=== PATIENT | male | born 1990 | race Caucasian/White ===

== ENCOUNTER 2017-04-23 12:55 | Emergency (ER) | payer BC ==
[2017-04-23 13:49] LABS: Urine Bilirubin 1 mg/dl (NEGATIVE); Urine Blood 25 /ul (NEGATIVE); Urine Ketone Negative (NEGATIVE); Urine Nitrite Negative (NEGATIVE); Urine Protein 30 mg/dL (NEGATIVE); Urine Specific Gravity 1.015 SP.GR. (1.005-1.030); Urine pH 7.5 pH (5.0-7.0)
[2017-04-23] MEDS ORDERED: ONDANSETRON HCL/PF 2 MG/ML VIAL IV ONE (13:51)
[2017-04-23] MEDS ORDERED: NORMAL SALINE 1,000 ML IV ONE (13:51)
--- OUTSIDE RECORDS SUMMARY | 2017-04-23 13:58 | XMS REPORT | Continuity of Care Document ---
:1990 Author Organization [facility] ([facility]) Address [address] [place] [address] Phone [phone] Care Team Providers Name Role Phone Provider, No-Primary Care Primary Care Provider Unavailable Source Comments This disclosure is being made pursuant to the Care Everywhere program, applicable federal and state laws, and may not contain all informaitonavailable regarding this patient.[facility] ([facility]) Active Allergies and Adverse Reactions No Known Allergies Current Medications Prescription Sig. Disp. Refills Start Date End Date Status CETIRIZINE HCL (ZYRTEC PO) 1 tablet. 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 Overview: After running into an outstretched finger on superior aspect of left eye (left upper eyelid) january 2016 Last Assessment & Plan: Better alignment, probably had swelling that has resolved He will call if worsening diplopia again Diplopia 02/11/2016 Social History Tobacco Use Types Packs/Day Years Used Date Never Smoker Alcohol Use Drinks/Week oz/Week Comments Yes Plan of Care Health Maintenance Due Date Last Done Comments Hepatitis B Vaccine (1 of 3 - Primary Series) 1990 HPV Vaccine (1 of 3 - Male 3 Dose Series) 2001 Tdap Vaccine 2001 Lipid Disorder Screening 2008 MMR Vaccine 2008 Td Vaccine 2008 Varicella Vaccine (1 of 2 - Adult - No Evidence of 2008 Immunity) Influenza Vaccine: Seasonal (#1) 06/29/2016 Results from Last 3 Months Not on file
--- NOTE | 2017-04-23 14:00 | ERNOTE ---
ER Male HPI Date of Service: 04/23/17 Stated Complaint: NAUSEA,DIZZINESS,FEVER ER Male: other - UTI Time Seen by Provider: 04/23/17 13:39 Source: patient, RN notes reviewed, past records Exam Limitations: no limitations Immunizations: IMMUNIZATION HX Immunizations Up to Date Yes History of Influenza Vaccine No Hx Pneumococcal Vaccination No Allergies/Adverse Reactions: Allergies No Known Allergies Allergy (Verified 04/23/17 13:08) Home Medications: HOME MEDICATIONS Ciprofloxacin HCl [Cipro] 500 mg PO BID 04/23/17 [Last Taken Unknown] Ondansetron [Zofran Odt] 8 mg PO Q8H PRN #12 tab 04/23/17 [Last Taken Unknown] - History of Present Illness Narrative: 26 y/o male ambulatory to the ED for lack of improvement after being diagnosed with a UTI and started on Cipro in the walk-in clinic earlier today. He has taken once dose of the antibiotic and also took ibuprofen. He states he has not felt well and has had bilateral flank pain for 2 days. He reports having one episode of urinary tract infection previously. He vomited yesterday and has been nauseous today. He has not been able to tolerate oral intake well today either. His urine in the clinic was only remarkable for hematuria. A culture was sent. Onset Location: Present: right flank, left flank Radiation: Present: none Sexual [place] History: Present: single partner Associated Symptoms: Present: fever/chills, diaphoresis, nausea, vomiting, low back pain. Absent: abdominal pain, dysuria, urinary frequency Prior Treatment: Present: recently seen, currently on antibiotics Review of Systems - Review of Systems Constitutional: Present: See HPI EYE: Present: no symptoms reported ENT: Present: no symptoms reported Respiratory: Absent: shortness of breath, cough Cardiology: Absent: chest pain, syncope Gastrointestinal/Abdominal: Present: nausea, vomiting, eating less, drinking less. Absent: diarrhea, constipation Genitourinary: Absent: frequency, pain, dysuria, discharge Musculoskeletal: Present: back pain. Absent: neck pain, joint pain Skin: Absent: rash, lesions Neurological: Present: headache, dizziness/light-headedness Endocrine: Present: no symptoms reported Hematologic/Lymphatic: Present: no symptoms reported Psych: Present: no symptoms reported - Patient's Past Medical History Patient History - Medical: No pertinent hx Patient History - Cardiac/Respiratory: No pertinent hx Patient History - Cancer: No Hx of Cancer Patient History - Surgical Procedures: T & A, Orthopedic Patient History - Other: None - Social History Living Situations: home Abuse History: No History of abuse Psych History: No pertinent hx Smoking Status: Never smoker Alcohol Use: none Drug Use: none - Immunizations Immunizations Up to Date: Yes Hx Pneumococcal Vaccination: No History of Influenza Vaccine: No Physical Exam - Physical Exam General Appearance: Present: wd/wn, alert, mild distress Neck: Present: normal inspection, nontender, supple, full range of motion Respiratory: Present: no respiratory distress, normal breath sounds, no accessory muscle use, lungs clear Cardiovascular/Chest: Present: no murmur, normal peripheral pulses, tachycardia Gastrointestinal/Abdominal: Present: normal bowel sounds, nondistended, soft, tenderness - suprapubic Back Exam: Present: normal range of motion, no vertebral tenderness, CVA tenderness (R), CVA tenderness (L) Extremity Exam: Present: normal inspection, normal range of motion, no edema Neurological Exam: Present: alert, oriented, normal mood/affect, no motor/ sensory deficits Skin Exam: Present: normal color, diaphoresis Lymphatic Exam: Present: no adenopathy ED Progress - Results and Orders Patient's Lab Results:: I have reviewed the patient's lab results. - Vital Signs Patient's Vital Signs:: I have reviewed the patient's vital signs. Vital Signs: Vital Signs 04/23/17 13:04 Temperature 37.3 C Pulse Rate 101 H Respiratory 16 Rate Blood Pressure 142/76 O2 Sat by Pulse 98 Oximetry - Progress/Reassessment Chief Complaint: Genitourinary Problem Progress:: Improved Progress Note-Subjective: Patient reports feeling better after medications and IV fluids. WBC is elevated at 16.5, UA is remarkable for hematuria but no signs of infection. Will continue current treatment for pyelonephritis as he does not have any other findings that suggest another etiology. Urine culture pending from his clinic visit earlier today, blood culture pending from this visit. Departure Clinical Impression: Fever and chills, Hematuria, Bilateral flank pain - Departure Disposition: Home self-care Condition: Stable Instructions: Pyelonephritis, Adult Additional Instructions: Push fluids Continue Cipro Tylenol and/or ibuprofen for fever Return if worsening or if no improvement in 2-3 days Prescriptions: Ondansetron [Zofran Odt] 8 mg PO Q8H PRN #12 tab PRN Reason: Nausea
[2017-04-23 14:02] LABS: Urine Appearance Clear; Urine Color Yellow
[2017-04-23 14:03] LABS: Urine Bacteria None Seen; Urine RBC TRACE /hpf (0-5); Urine WBC None Seen /hpf (0-5)
[2017-04-23] MEDS ORDERED: ONDANSETRON HCL/PF 2 MG/ML VIAL ONE (14:08)
[2017-04-23 14:11] LABS: Hematocrit 43.7 % (42.0-52.0); Hemoglobin 15.2 gm/dL (13.5-18.0); Mean Cell Volume 87.8 fl (78-100); Mean Corpuscular Hemoglobin 30.5 pg (27-31); Mean Corpuscular Hgb Conc 34.8 g/dl (32-36); Mean Platelet Volume 8.8 fl (6.0-9.5); Neutrophil # 13.8 K/mm3 (1.3-6.0); Neutrophil % 82.4 % (42-75.0); Platelet Count 217 K/mm3 (150-450); Red Blood Count 4.98 M/mm3 (4.7-6.0); Red Cell Distribution Width 12.6 % (11.5-14.0); White Blood Count 16.7 K/mm3 (4.0-10.5)
[2017-04-23 14:29] LABS: Albumin * 4.1 gm/dl (3.4-5.0); BUN/Creatinine Ratio 11.1 (9.0-21.6); Bilirubin, Total 0.9 mg/dL (0.0-1.1); Ca. Corrected For Albumin 8.9 mg/dL (8.4-10.2); Calcium * 9.3 mg/dL (7.9-10.9); Carbon Dioxide 26.6 mmol/L (24-32.6); Potassium 3.6 mmol/L (3.4-4.6); Total Protein 7.8 gm/dL (6.2-8.2)
[2017-04-23 15:24] VITALS: BP 129/64
== END 2017-04-23 15:11 | disposition home or self-care (01) ==
LOC: ER 12:55
DX: R50.9 Fever, unspecified (principal); R31.9 Hematuria, unspecified; R10.9 Unspecified abdominal pain

== ENCOUNTER 2017-09-05 10:54 | Emergency (ER) | payer BC ==
[2017-09-05] MEDS ORDERED: predniSONE 20 MG TABLET PO ONE (11:46)
--- NOTE | 2017-09-05 11:49 | ERNOTE ---
Integumentary HPI - Narrative Date of Service: 09/05/17 - General Presenting Symptoms: rash Time Seen by Provider: 09/05/17 11:32 Source: patient, RN notes reviewed Exam Limitations: no limitations - Immun/Allergies/Home Medications Immunizations: IMMUNIZATION HX Immunizations Up to Date Yes History of Influenza Vaccine No Hx Pneumococcal Vaccination No Allergies/Adverse Reactions: Allergies Allergy/AdvReac Type Severity Reaction Status Date / Time No Known Allergies Allergy Verified 09/05/17 11:08 Home Medications: HOME MEDICATIONS Triamcinolone Acetonide [Kenalog 0.1%] 15 gm TP TID #2 tube 09/05/17 [Last Taken Unknown] predniSONE [Prednisone] 20 mg PO DAILY #27 tablet 09/05/17 [Last Taken Unknown] - Pain Pain Score: 0 - History of Present Illness Narrative: 26 year old male ambulatory to the ED for a pruritic rash that began 2 days ago and has been gradually worsening. He had been outdoors and believes the rash is poison adriana. He has been using a left over prescription steroid cream without improvement. Date (Duration): 09/03/17 Location: Reports: facial, torso, upper extremity, lower extremity Quality: Reports: itching Severity: moderate Exposure: Reports: poison adriana/oak Prior Treatment: Denies: recently seen Review of Systems - Review of Systems Constitutional: Absent: fever, chills, malaise EYE: Present: no symptoms reported ENT: Absent: nose congestion, sore throat, throat swelling Respiratory: Absent: shortness of breath, wheezing, stridor Cardiology: Present: no symptoms reported Gastrointestinal/Abdominal: Absent: nausea, vomiting Genitourinary: Present: no symptoms reported Musculoskeletal: Absent: muscle pain, joint pain Skin: Present: rash, lesions. Absent: change in color Neurological: Absent: headache, dizziness/light-headedness Endocrine: Present: no symptoms reported Hematologic/Lymphatic: Present: no symptoms reported Psych: Present: no symptoms reported - Patient's Past Medical History Patient History - Medical: No pertinent hx Patient History - Cardiac/Respiratory: No pertinent hx Patient History - Cancer: No Hx of Cancer Patient History - Surgical Procedures: T & A, Orthopedic Patient History - Other: None - Social History Living Situations: home Abuse History: No History of abuse Psych History: No pertinent hx Smoking Status: Never smoker Alcohol Use: none Drug Use: none - Immunizations Immunizations Up to Date: Yes Hx Pneumococcal Vaccination: No History of Influenza Vaccine: No Physical Exam - Physical Exam General Appearance: Present: wd/wn, alert, no apparent distress Eye Exam: Eyelid inflammation: bilateral - Rash surrounding both eyes with mild edema Ears, Nose, Throat: Present: normal ENT inspection, normal pharynx Neck: Present: normal inspection, nontender, supple, full range of motion Respiratory: Present: no respiratory distress, normal breath sounds, no accessory muscle use, lungs clear Cardiovascular/Chest: Present: regular rate, rhythm, no murmur Extremity Exam: Present: normal inspection, no edema Neurological Exam: Present: alert, oriented, normal mood/affect, no motor/ sensory deficits Skin Exam: Present: warm/dry, skin rash - Moderate papular eruption to face, arms, torso and legs ED Progress - Vital Signs Patient's Vital Signs:: I have reviewed the patient's vital signs. Vital Signs: Vital Signs 09/05/17 11:06 Temperature 36.7 C Pulse Rate 108 H Respiratory 18 Rate Blood Pressure 114/76 O2 Sat by Pulse 97 Oximetry - Progress/Reassessment Chief Complaint: Rash Progress:: Unchanged Departure Clinical Impression: Poison adriana dermatitis - Departure Disposition: Home self-care Condition: Good Instructions: Poison Adriana Dermatitis Additional Instructions: Take prednisone in the mornings with food [place] Maximum itch relief cream in between doses of steroid cream may be helpful Benadryl at bedtime can help you sleep Prescriptions: predniSONE [Prednisone] 20 mg PO DAILY #27 tablet Triamcinolone Acetonide [Kenalog 0.1%] 15 gm TP TID #2 tube
[2017-09-05 11:59] VITALS: BP 116/78
== END 2017-09-05 11:50 | disposition home or self-care (01) ==
LOC: ER 10:54
DX: L23.7 Allergic contact dermatitis due to plants, except food (principal)